=== PATIENT | male | born 1965 | race Caucasian/White ===

== ENCOUNTER → 2017-10-04 | Emergency (ER) | payer OTHER ==
[~2017-10-04] VITALS: Ht 198.1 cm; Wt 130.6 kg
[~2017-10-04] MED LIST: AVALIDE 300-121 EACH; SYNTHROID300 MCG
== END | disposition home or self-care (01) ==
LOC: ER 10:57
DX: M25.562 Pain in left knee (principal); M25.561 Pain in right knee

== ENCOUNTER 2017-10-23 14:38 | Emergency (ER) | payer OTHER ==
[~2017-10-23] VITALS: Ht 198.1 cm; Wt 129.7 kg
[2017-10-23] MEDS ORDERED: NORVASC10 MG (14:49)
== END 2017-10-23 16:28 | disposition home or self-care (01) ==
LOC: ER 14:38
DX: R00.2 Palpitations (principal); R07.9 Chest pain, unspecified; F06.4 Anxiety disorder due to known physiological condition

== ENCOUNTER → 2018-03-16 | Emergency (ER) | payer OTHER ==
[~2018-03-16] MED LIST changes: +NORVASC10 MG
== END | disposition left against medical advice (07) ==
LOC: ER 21:28
DX: Z53.20 Procedure and treatment not carried out because of patient's decision for unspecified reasons (principal)